=== PATIENT | male | born 1955 | race African-American/Black ===

== ENCOUNTER 2018-09-26 13:21 | Emergency (ER) | payer MEDICAID ==
[~2018-09-26] VITALS: Ht 170.2 cm; Wt 90.7 kg
[~2018-09-26 13:21] MED LIST: NORCO 10/3251 EA ORAL; TENORMIN25 MG ORAL
[2018-09-26] MEDS ORDERED: METFORMIN HCL500 M1 ORAL (13:33)
[2018-09-26] MEDS ORDERED: ASPIR 8181 MG ORAL (13:33)
[2018-09-26 13:40] VITALS: BP 113/59
--- NOTE | 2018-09-26 13:40 | NUR ---
ED Nurse Note: pt walked in c/o syncopal episode, pt reports he ate some soup and had vomiting episode x1 and passed out, and family woke pt up. pt reports he had never had it before. pt aa&ox4, gcs=15, skin warm and dry, resp even and unlabored on RA, -n/v/d at this time, reports dizziness, vss, nsr on cardiac surgeon, will cont monitor. at the bedside.
--- NOTE | 2018-09-26 13:51 | NUR ---
ED Nurse Note: pt off to ct.
[2018-09-26] MEDS ORDERED: LISINOPRIL20 MG ORAL (13:52)
[2018-09-26] MEDS ORDERED: LEVITRA20 MG ORAL (13:52)
[2018-09-26] MEDS ORDERED: SIMVASTATIN20 MG ORAL (13:52)
--- NOTE | 2018-09-26 14:17 | Emergency Room Report ---
History of Present Illness General Chief Complaint: Syncope Source: Patient, Medical Record Present Illness HPI Patient is a 63-year-old male who presented after syncopal episode. Patient was noted to be feeling lightheaded prior to syncope. He reportedly had been taking multiple medications for blood pressure and had been feeling somewhat lightheaded prior to passing out. He denies any chest discomfort or palpitations prior to passing out. He had prior history of CVA as well as diuretic use. He had prior episodes of syncope many years ago. He was standing at the time of syncopal episode. He denies any current symptoms and states he feels better. Allergies: Coded Allergies: No Known Allergies (Unverified , 01/11/15) Patient History Past Medical History: see triage record Reviewed Nursing Documentation: PMH: Agreed; PSxH: Agreed Nursing Documentation-PM Past Medical History: No History, Except For Hx Hypertension: Yes Hx Diabetes: Yes Hx Cerebrovascular Accident: Yes - 2006 Review of Systems All Other Systems: negative except mentioned in HPI Physical Exam Vital Signs Date Time Temp Pulse Resp B/P (MAP) Pulse Ox O2 Delivery O2 Flow Rate FiO2 09/26/18 13:29 97.9 64 18 109/66 (80) 99 Room Air Sp02 EP Interpretation: reviewed, normal General Appearance: normal inspection, well appearing, no apparent distress, alert, GCS 15 Head: atraumatic ENT: normal ENT inspection, hearing grossly normal, normal voice Neck: normal inspection, full range of motion, supple, no bony tend Respiratory: normal inspection, lungs clear, normal breath sounds, no respiratory distress, no retraction, no wheezing Cardiovascular #1: regular rate, rhythm, no edema Gastrointestinal: normal inspection, normal bowel sounds, non tender, soft, no guarding, no hernia Genitourinary: no CVA tenderness Musculoskeletal: normal inspection, back normal, normal range of motion Neurologic: normal inspection, alert, oriented x3, responsive, it director III-XII nml as tested, speech normal Psychiatric: normal inspection, judgement/insight normal, mood/affect normal Skin: normal inspection, normal color, no rash Medical Decision Making Diagnostic Impression: Primary Impression: Syncope Additional Impression: Dehydration ER Course Patient presented for syncope. Differential diagnosis include was not limited to orthostatic syncope, bradycardia, medication overdose, anemia among others. Because of complexity of patient's case laboratory testing and imaging studies were ordered. Patient was noted to have initial low blood pressure. He had been taking 4 different medications for his blood pressure. Patient's urine appears to be somewhat concentrated. Patient started on IV fluids. Patient was noted to have some orthostatic symptoms. EKG interpreted by me showed normal sinus rhythm with a rate of [address] or T wave changes.Patient said he felt better and wanted to go home. Patient was advised to follow-up with his primary care physician for recheck of his blood pressure and for possible medication adjustment. Patient advised to return if he felt worse. Labs Test 09/26/18 14:30 White Blood Count 9.6 K/UL (4.8-10.8) Red Blood Count 4.83 M/UL (4.70-6.10) Hemoglobin 15.3 G/DL (14.2-18.0) Hematocrit 46.2 % (42.0-52.0) Mean Corpuscular Volume 96 FL (80-99) Mean Corpuscular Hemoglobin 31.6 PG (27.0-31.0) Mean Corpuscular Hemoglobin Concent 33.1 G/DL (32.0-36.0) Red Cell Distribution Width 13.3 % (11.6-14.8) Platelet Count 191 K/UL (150-450) Mean Platelet Volume 7.0 FL (6.5-10.1) Neutrophils (%) (Auto) 65.5 % (45.0-75.0) Lymphocytes (%) (Auto) 25.0 % (20.0-45.0) Monocytes (%) (Auto) 7.8 % (1.0-10.0) Eosinophils (%) (Auto) 0.6 % (0.0-3.0) Basophils (%) (Auto) 1.1 % (0.0-2.0) Urine Color Yellow Urine Appearance Clear Urine pH 5 (4.5-8.0) Urine Specific [place] 1.025 (1.005-1.035) Urine Protein 2+ (NEGATIVE) Urine Glucose (UA) Negative (NEGATIVE) Urine Ketones 1+ (NEGATIVE) Urine Blood 2+ (NEGATIVE) Urine Nitrite Positive (NEGATIVE) Urine Bilirubin 1+ (NEGATIVE) Urine Ictotest Negative (NEGATIVE) Urine Urobilinogen 4 MG/DL (0.0-1.0) Urine Leukocyte Esterase 2+ (NEGATIVE) Urine RBC 2-4 /HPF (0 - 0) Urine WBC 2-4 /HPF (0 - 0) Urine Squamous Epithelial Cells Few /LPF (NONE/OCC) Urine Bacteria Few /HPF (NONE) Urine Hyaline Casts 2-4 /LPF (NONE) Sodium Level 140 MMOL/L (136-145) Potassium Level 3.8 MMOL/L (3.5-5.1) Chloride Level 104 MMOL/L (98-107) Carbon Dioxide Level 28 MMOL/L (21-32) Anion Gap 8 mmol/L (5-15) Blood Urea Nitrogen 18 mg/dL (7-18) Creatinine 1.9 MG/DL (0.55-1.30) Estimat Glomerular Filtration Rate 43.6 mL/min (>60) Glucose Level 136 MG/DL (74-106) Calcium Level 9.4 MG/DL (8.5-10.1) Total Bilirubin 0.4 MG/DL (0.2-1.0) Aspartate Amino Transf (AST/SGOT) 20 U/L (15-37) Alanine Aminotransferase (ALT/SGPT) 22 U/L (12-78) Alkaline Phosphatase 111 U/L (46-116) Total Creatine Kinase 144 U/L (26-308) Creatine Kinase MB 1.0 NG/ML (0.0-3.6) Creatine Kinase MB Relative Index 0.6 Troponin I 0.002 ng/mL (0.000-0.056) Pro-B-Type Natriuretic Peptide 115 pg/mL (0-125) Total Protein 8.8 G/DL (6.4-8.2) Albumin 3.6 G/DL (3.4-5.0) Globulin 5.2 g/dL Albumin/Globulin Ratio 0.7 (1.0-2.7) Lipase 85 U/L (73-393) Urine Opiates Screen Negative (NEGATIVE) Urine Barbiturates Screen Negative (NEGATIVE) Phencyclidine (PCP) Screen Negative (NEGATIVE) Urine Amphetamines Screen Negative (NEGATIVE) Urine Benzodiazepines Screen Negative (NEGATIVE) Urine Cocaine Screen Negative (NEGATIVE) Urine Marijuana (THC) Screen Negative (NEGATIVE) EKG Diagnostic Results Rate: normal Rhythm: NSR ST Segments: no acute changes Last Vital Signs Date Time Temp Pulse Resp B/P (MAP) Pulse Ox O2 Delivery O2 Flow Rate FiO2 09/26/18 13:29 97.9 64 18 109/66 (80) 99 Room Air Status: improved Disposition: HOME, SELF-CARE Condition: Stable Austin Villaseñor MD Sep 26, 2018 14:17
--- NOTE | 2018-09-26 14:35 | Diagnostic Imaging Report ---
EXAM: CT Head Without Intravenous Contrast CLINICAL HISTORY: PAIN TECHNIQUE: Axial computed tomography images of the head/brain without intravenous contrast. CTDI is 70.53 mGy and DLP is 1396 mGy-cm. One or more of the following dose reduction techniques were used: automated exposure control, adjustment of the mA and/or kV according to patient size, use of iterative reconstruction technique. Coronal reformatted images were created and reviewed. COMPARISON: CT head dated 01/11/15 FINDINGS: Brain: Generalized parenchymal volume loss, likely age-related. Periventricular and subcortical white matter hypodensities. No evidence of acute intracranial hemorrhage. No mass effect or midline shift. Ventricles: Unremarkable. No ventriculomegaly. Bones/joints: Unremarkable. No acute fracture. Soft tissues: Unremarkable. Sinuses: Unremarkable Mild mucosal thickening in the left maxillary sinus. Remaining visualized paranasal sinuses appear clear. Mastoid air cells: Unremarkable as visualized. No mastoid effusion. Vascular: Atherosclerotic calcifications of bilateral vertebral arteries and bilateral cavernous portions of the ICAs. IMPRESSION: 1. No acute intracranial findings. 2. Periventricular and subcortical white matter hypodensities, likely related to chronic small vessel disease changes. 3. Generalized cerebral parenchymal volume loss, likely age-related.
[2018-09-26 14:40] VITALS: BP 118/62
--- NOTE | 2018-09-26 14:43 | Diagnostic Imaging Report ---
EXAM: XR Chest, 1 View CLINICAL HISTORY: Chest pain TECHNIQUE: Frontal view of the chest. COMPARISON: Chest x-rays dated 01/11/15 FINDINGS: Lungs: Unremarkable. The lungs appear clear. No focal consolidation. Pleural space: Unremarkable. The costophrenic angles are sharp. No visible pneumothorax. Heart: Unremarkable. No cardiomegaly. Mediastinum: Unremarkable. Bones/joints: Unremarkable. Tubes, lines and devices: EKG leads overlie the thorax. IMPRESSION: No acute findings.
[2018-09-26 15:05] LABS: BASOPHILS % (AUTO) 1.1 % (0.0-2.0); EOSINOPHILS % (AUTO) 0.6 % (0.0-3.0); HEMATOCRIT 46.2 % (42.0-52.0); HEMOGLOBIN 15.3 G/DL (14.2-18.0); MEAN CORPUSCULAR VOLUME 96 FL (80-99); MONOCYTES % (AUTO) 7.8 % (1.0-10.0); NEUTROPHILS % (AUTO) 65.5 % (45.0-75.0); PLATELET COUNT 191 K/UL (150-450); RED BLOOD COUNT 4.83 M/UL (4.70-6.10); RED CELL DISTRIBUTION WIDTH 13.3 % (11.6-14.8); WHITE BLOOD COUNT 9.6 K/UL (4.8-10.8)
[2018-09-26 15:06] LABS: APPEARANCE,URINE CLEAR; BILIRUBIN, URINE 1+ (NEGATIVE); GLUCOSE, URINE (UA) NEGATIVE (NEGATIVE); KETONES,URINE 1+ (NEGATIVE); LEUKOCYTE ESTERASE ,URINE 2+ (NEGATIVE); NITRITE,URINE POSITIVE (NEGATIVE); PH,URINE 5 (4.5-8.0); PROTEIN,URINE 2+ (NEGATIVE); UROBILINOGEN,URINE 4 MG/DL (0.0-1.0)
[2018-09-26 15:15] LABS: COLOR,URINE YELLOW
[2018-09-26 15:25] LABS: ANION GAP 8 mmol/L (5-15); BLOOD UREA NITROGEN 18 mg/dL (7-18); CALCIUM 9.4 MG/DL (8.5-10.1); CARBON DIOXIDE 28 MMOL/L (21-32); CHLORIDE 104 MMOL/L (98-107); CREATININE 1.9 MG/DL (0.55-1.30); POTASSIUM 3.8 MMOL/L (3.5-5.1); SODIUM 140 MMOL/L (136-145)
[2018-09-26 15:40] VITALS: BP 121/70
[2018-09-26 15:42] LABS: ALANINE AMINOTRANSFERASE 22 U/L (12-78); ALBUMIN 3.6 G/DL (3.4-5.0); ALBUMIN/GLOBULIN RATIO 0.7 (1.0-2.7); ALKALINE PHOSPHATASE 111 U/L (46-116); ASPARTATE AMINO TRANSFERASE 20 U/L (15-37); BILIRUBIN,TOTAL 0.4 MG/DL (0.2-1.0); CREATINE KINASE 144 U/L (26-308)
--- NOTE | 2018-09-26 16:00 | NUR ---
ED Nurse Note: orthostatic vs done per ERMD and notified result supine 128/71, HR 63 Sitting 125/85 HR 73 Standing 139/80 Hr 85 pt denies dizziness.
--- NOTE | 2018-09-26 16:15 | NUR ---
ED Nurse Note: pt provided with sandwich and snack, verified w/ ermd. able to tolerate po fluid well and no nausea nor vomiting.
--- NOTE | 2018-09-26 17:00 | NUR ---
ED Nurse Note: pt resting at this time, waiting for pt's to come to hospital with clothes, pending discharge, vss, resp even and unlabored on RA, will cont monitor.
[2018-09-26 18:04] VITALS: BP 139/80
--- NOTE | 2018-09-26 18:05 | NUR ---
ED Nurse Note: pt cleared to be d/c per ERMD, pt discharge and aftercare instruction provided, pt advised to follow up with pcp or return to ed if changes in condition, vss, ambulatory w/ steady gait, pt education done via discussion and handout, pt verbalized understanding and agrees with plan, pt accompanied by spouse member, iv d/c and id band removed. left w/ all belongings.
--- NOTE | 2018-09-29 15:07 | Cardiology Report ---
APPROVED REPORT EKG Measurement Heart [id number] ND [id number] Sinus bradycardia Otherwise normal ECG
== END 2018-09-26 18:04 | disposition home or self-care (01) ==
LOC: EMR 14:27
DX: R55 Syncope and collapse (principal); E86.0 Dehydration; I10 Essential (primary) hypertension; E11.9 Type 2 diabetes mellitus without complications; Z86.73 Personal history of transient ischemic attack (TIA), and cerebral infarction without residual deficits
CPT/HCPCS: 36415; 70450; 71045; 80053; 80307; 81003; 82550; 82553; 83690; 83880; 84484; 85025; 93005; 99284